=== PATIENT | male | born 1970 | race Two or more races ===

== ENCOUNTER 2024-03-25 01:04 | Inpatient (IN) | payer BC, OTHER ==
[~2024-03-25] VITALS: Ht 165.1 cm; Wt 76.0 kg
[2024-03-25 02:02] LABS: Urine Bacteria None Seen /hpf (None Seen); Urine WBC None Seen /hpf (0 - 3)
[2024-03-25 02:16] LABS: Basophils # (auto) 0.1 10 ^3/uL (0-0.2); Basophils % (auto) 0.8 % (0.0-2.0); Eosinophils # (auto) 0.2 10 ^3/uL (0-0.8); Eosinophils % (auto) 3.9 % (0.0-7.0); Hematocrit 47.5 % (41.0-53.0); Hemoglobin 16.3 g/dL (13.5-17.5); Lymphocytes # (auto) 1.7 10 ^3/uL (0.4-5.4); Lymphocytes % (auto) 26.9 % (10.0-50.0); Mean Corpuscular Hemoglobin 29.2 pg (28.0-32.0); Mean Corpuscular Hgb Conc. 34.4 g/dL (32.0-36.0); Mean Corpuscular Volume 84.9 fL (80.0-100.0); Monocytes # (auto) 0.5 10 ^3/uL (0-1.3); Monocytes % (auto) 7.9 % (0.0-12.0); Neutrophils # (auto) 3.8 10 ^3/uL (1.6-8.6); Neutrophils % (auto) 60.5 % (37.0-80.0); Nucleated Red Blood Cells % 0.1 %; Red Cell Distribution Width 14.2 % (11.8-14.3); White Blood Cell 6.2 10^3/uL (4.4-10.8)
[2024-03-25 02:16] LABS: Urine Blood Negative /uL (Negative); Urine Budding Yeast OCCASIONAL /hpf (None Seen); Urine Clarity Clear (Clear); Urine Color Light-Yellow (Yellow); Urine Mucus FEW (None Seen); Urine Protein, UAD Negative (Negative); Urine Specific Gravity 1.022 (1.001-1.035); Urine Urobilinogen Normal (Negative); Urine pH 6.5 (5.0-9.0)
[2024-03-25 02:54] LABS: Alanine Aminotransferase 57 U/L (7-40); Albumin 4.6 g/dL (3.2-4.8); Alkaline Phosphatase 80 U/L (46-116); Anion Gap 7 (5-15); Aspartate Aminotransferase 25 U/L (13-40); BUN/Creatinine Ratio 17.1 (10.0-20.0); Blood Urea Nitrogen 18 mg/dL (9-23); Calcium 10.2 mg/dL (8.7-10.4); Carbon Dioxide 28 mmol/L (20-30); Chloride 105 mmol/L (98-107); Glucose 112 mg/dL (74-106); Lipase 65 U/L (12-53); Potassium 4.4 mmol/L (3.5-5.1); Sodium 140 mmol/L (136-145)
[2024-03-25 02:55] LABS: Bilirubin, Total 0.8 mg/dL (0.2-1.0); Total Protein 7.1 g/dL (5.7-8.2)
[2024-03-25] MEDS ORDERED: PIPERACILLIN-TAZOB 3.375GM 100 ML IV ONE (05:45)
[2024-03-25] MEDS ORDERED: ONDANSETRON HCL 4 MG/2 ML VIAL IV PRN (06:30)
[2024-03-25] MEDS ORDERED: MORPHINE SULFATE INJ 2 MG/ml SYRG IV PRN (06:30)
[2024-03-25 06:39] VITALS: PULSE 61; RESP 16; O2SAT 98
[2024-03-25] MEDS: D5W/SOD CHLO 0.9% 1,000 ML IV ONE (06:39)
[2024-03-25 07:25] VITALS: PULSE 59; RESP 18; O2SAT 95
[2024-03-25] MEDS: PANTOPRAZOLE 40 MG/10 ML VIAL INJ IV SCH (10:43)
[2024-03-25 19:30] VITALS: PULSE 53; RESP 14; O2SAT 98
[2024-03-25 23:50] VITALS: BP 118/72; PULSE 50; RESP 14; TEMP 97.8; O2SAT 96
[2024-03-26 05:00] VITALS: BP 121/67; PULSE 52; RESP 20; TEMP 98; O2SAT 97
[2024-03-26 07:14] LABS: Chloride 110 mmol/L (98-107); Sodium 141 mmol/L (136-145)
[2024-03-26 07:15] LABS: Anion Gap 4 (5-15); Calcium 9.2 mg/dL (8.5-10.1); Carbon Dioxide 27 mmol/L (20-30)
[2024-03-26 07:20] LABS: BUN/Creatinine Ratio 9.6 (10.0-20.0); Blood Urea Nitrogen 9 mg/dL (9-23); Glucose 89 mg/dL (74-106)
[2024-03-26 07:27] LABS: Basophils # (auto) 0 10 ^3/uL (0-0.2); Basophils % (auto) 0.8 % (0.0-2.0); Eosinophils # (auto) 0.2 10 ^3/uL (0-0.8); Eosinophils % (auto) 5.3 % (0.0-7.0); Hematocrit 44.1 % (41.0-53.0); Hemoglobin 15.5 g/dL (13.5-17.5); Lymphocytes # (auto) 1.6 10 ^3/uL (0.4-5.4); Lymphocytes % (auto) 34.6 % (10.0-50.0); Mean Corpuscular Hemoglobin 29.6 pg (28.0-32.0); Mean Corpuscular Hgb Conc. 35.2 g/dL (32.0-36.0); Mean Corpuscular Volume 84.2 fL (80.0-100.0); Monocytes # (auto) 0.4 10 ^3/uL (0-1.3); Neutrophils # (auto) 2.3 10 ^3/uL (1.6-8.6); Neutrophils % (auto) 50.3 % (37.0-80.0); Nucleated Red Blood Cells % 0.1 %; Red Blood Cells 5.24 10^6/uL (4.5-5.90); White Blood Cell 4.5 10^3/uL (4.4-10.8)
[2024-03-26] MEDS ORDERED: GASTROGRAFIN 120 ML SOL ONE (07:51)
[2024-03-26 09:00] VITALS: BP 105/63; PULSE 60; RESP 18; TEMP 97.8; O2SAT 94
[2024-03-26 13:17] VITALS: BP 127/77; PULSE 58; RESP 16; TEMP 97.9; O2SAT 97
== END 2024-03-26 14:44 | disposition home or self-care (01) | DRG 390 ==
LOC: ER 01:04 → OVERFLOW 06:26 → WEST WING 23:30
PROVIDERS: ADMIT Nurse Practitioner; ATTEND Family Medicine
DX: K56.600 Partial intestinal obstruction, unspecified as to cause (principal)
CPT/HCPCS: 36415; 74018; 74176; 74250; 80048; 80053; 81001; 83690; 84484; 85025; 93005; 96361; 96374; C9113; G0378